=== PATIENT | female | born 2000 | race Caucasian/White ===

== ENCOUNTER 2024-11-05 16:20 | Emergency (ER) | payer OTHER, SELFPAY ==
[2024-11-05 16:23] VITALS: BP 121/87
--- NOTE | 2024-11-05 16:41 | ED.GENMED ---
History of Present Illness
General
Chief Complaint: Flank Pain
Source: patient
Exam Limitations: none
Time Seen by Provider: 11/05/24 16:26
History of Present Illness
History of Present Illness:
24yoF with a history of kidney stones, POTS, MAST cell activation syndrome presenting with her father for evaluation of left flank pain. Patient was seen at an ED in [place] 3 days ago and was diagnosed with a left kidney stone. Her pain resolved
so she assumed that she passed the stone although did not see any stones in the urine strainer. She has been urinating frequently over the past few days. Her current pain started abruptly around noon today. Pain is localized to the left flank and
is nonradiating. She reports associated nausea and vomited once. She denies any fevers. She has never seen a urologist before. She has passed multiple stones within the past year.
Phy Exam
Physical Exam
Physical Exam:
Appears uncomfortable
General Physical Exam
General Presentation: mild distress
General Skin: warm and dry
General Habitus: normal
General Mental: alert
ENT Exam
ENT Exam: normocephalic
Gastrointestinal Exam
Gastrointestinal Exam: non tender, soft, non distended and other (+L CVA tenderness)
Neurological Exam
Neurological Exam: alert
Grace Coma Scale
Eye Opening: Spontaneous
Verbal Response: Oriented
Motor Response: Obeys Commands
GCS Total Score: 15
Skin Exam
Skin Exam: normal color and warm/dry
Psychiatric Exam
Psychiatric Exam: normal mood/affect
Course
Orders/Labs/Results
Orders:
Orders
11/05/24 16:40
CT Abd/pel Without Iv Or Oral Urgent
Comment:
Reason For Exam: L flank pain
0.9% Sodium Chloride 1000 ml [Nss] 1,000 ml IV BOLUS
HYDROmorphone [Dilaudid] 0.5 mg IV NOW STA
Ketorolac [Toradol] 15 mg IV NOW STA
Test Result ONCE
11/05/24 16:53
Complete Blood Count/With Diff Urgent
Comprehensive Metabolic Panel Urgent
HCG, Serum Qualitative Screen Urgent
Urinalysis Reflex To Culture Urgent
Date Specimen was Collected: 11/05/24
Time Specimen was Collected: 16:32
Urine Microscopic Reflex Cult Urgent
11/05/24 17:18
Ondansetron Injectable [Zofran] 4 mg .ROUTE .STK-MED ONE
Ondansetron Injectable [Zofran] 4 mg IV NOW STA
11/05/24 18:34
HYDROmorphone [Dilaudid] 0.5 mg IV NOW STA
Ketorolac [Toradol] 15 mg IV NOW STA
11/05/24 19:23
Acetaminophen 1000MG/100Ml [Ofirmev] 1,000 mg in 100 ml IV ONCE
Acetaminophen IV Indication:: ED Narcotic Naive Pt-ONCE
Ketorolac [Toradol] 15 mg IV NOW STA
Ondansetron Injectable [Zofran] 4 mg IV NOW STA
Tamsulosin [Flomax] 0.4 mg PO NOW STA
Abnormal Lab Results
11/05/24
16:53
RBC 4.11 L 10^6/uL
(4.20-5.40)
Hct 36.3 L %
(37.0-47.0)
MCH 31.6 H pg
(27.0-31.0)
Lymphocytes % 17.5 L %
(20.5-51.1)
Glucose 118 H mg/dl
(70-99)
AST 63 H U/L
(14-36)
ALT 41 H U/L
(0-35)
Urine Ketones 3+ A
(Negative)
Ur Occult Blood Reflex 2+ A
(Negative)
Urine RBC 3-6 A /HPF
(0-2)
Urine Bacteria (Reflex) Few A
(Negative)
Urine Albumin (Reflex) 1+ A
(Neg - Trace)
11/05/24 16:53
11/05/24 16:53
Vital Signs
Initial and Last Documented VS:
Initial Vital Signs
Temp Pulse Resp BP Pulse Ox
98.1 F 93 20 121/87 99
11/05/24 16:23 11/05/24 16:23 11/05/24 16:23 11/05/24 16:23 11/05/24 16:23
Last Documented Vital Signs
Temp Pulse Resp BP Pulse Ox
98.1 F 88 20 128/76 99
11/05/24 16:23 11/05/24 20:17 11/05/24 20:17 11/05/24 20:17 11/05/24 20:17
MDM/Problems Addressed
Differential Diagnosis Includes:
24yoF here with L flank pain that started this afternoon. Associated with n/v. Diagnosed with a kidney stone 3 days ago in [place]. VSS. She appears uncomfortable but is non-toxic. +L CVA tenderness on exam. Differential diagnosis includes but is
not limited to: kidney stone, pyelonephritis, UTI, musculoskeletal
Initial ED plan: Check CBC, CMP, HCG, UA, and CT abdomen without contrast. IV Toradol, Dilaudid, Zofran, and fluid bolus for symptoms.
*Critical Care Note
Total Time (30-74mins, 75-104mins- exclusive of procedures): Not Applicable
Update Note
Update Note:
CT shows a 2mm L UVJ stone. Creatinine 0.7. No signs of infection on urinalysis. Pain down to a 4/10 on reassessment. No indication for hospitalization. Supportive care discussed including hydration, urine straining, and Flomax. Prescription given
for oxycodone and Zofran. Advised close f/u with urology and ED return precautions reviewed. Patient in agreement with plan and was discharged in stable condition.
ED Attending Note
-
Portions of this chart may have been created with voice recognition software.� Occasional wrong word or��sound alike� substitutions may have occurred due to the inherent limitations of voice recognition software.
Discharge Plan
Departure
Patient Disposition: Home (Routine Discharge)
Date of Disposition: 11/05/24
Time of Disposition: 19:46
Patient with high blood pressure during this ER visit?: No
Discharge Problem:
Calculus of distal left ureter
Instructions: Kidney Stones (DC), How to Strain Your Urine
Prescriptions:
New
tamsulosin [Flomax] 0.4 mg capsule
0.4 mg PO HS Qty: 7 0RF
ondansetron 4 mg tablet,disintegrating
4 mg PO Q6H PRN (Reason: nausea and vomiting) Qty: 20 0RF
oxycodone 5 mg tablet
5 mg PO Q6H PRN (Reason: Pain) Qty: 12 0RF
Referrals:
Andrea Augustine MD [Active] -
Cristine Rendon DO [Family Provider] -
Activity Restrictions/Additional Instructions:
Drink plenty of fluids. Strain your urine and take Flomax until stone has passed.
Take Tylenol and ibuprofen for pain. Take oxycodone as needed for severe breakthrough pain. Take Zofran as needed for nausea.
Please follow-up with urology. Return to the ER with any worsening symptoms including uncontrolled pain or fevers.
Interventions
Interventions:
*Risk Screen - Suicide Last Done: 11/05/24 16:56
*General Assessment Last Done: 11/05/24 16:23
*Neglect/Abuse Screening Last Done: 11/05/24 16:56
*ED- Fall Risk Assessment Last Done: 11/05/24 20:17
*ED COVID-19 Vaccine History Last Done: 11/05/24 20:17
*Nursing Disposition Last Done: 11/05/24 20:20
BE-Njxbuz-Mtqvsattvj Assessment Last Done: 11/05/24 16:56
ED-Female Genitourinary Assessment Last Done: 11/05/24 17:13
Discharge Date and Time
Discharge Date/Time: 11/05/24 20:21
Print Language: MACEDONIAN
[2024-11-05] MEDS: DILAUDID 0.5 MG IV ×2 (16:49→18:37)
[2024-11-05] MEDS: TORADOL 15 MG IV ×3 (16:49→19:47)
[2024-11-05] MEDS: NSS 1000 IV (16:50)
[2024-11-05 16:56] VITALS: BMI 19.2
[2024-11-05 17:04] LABS: % Basophils 0.4 % (0-2); % Immature Granulocytes 0.4 % (0-0.5); % Lymphocytes 17.5 % (20.5-51.1); % Monocytes 7.3 % (1.7-9.3); % Neutrophils 73.4 % (42.2-75.2); Absolute Eosinophils 0.1 10^3/uL (0-0.7); Absolute Lymphocytes 1.5 10^3/uL (1.2-3.4); Absolute Monocytes 0.6 10^3/uL (0.1-0.6); Absolute Neutrophils 6.2 10^3/uL (1.4-6.5); Hematocrit 36.3 % (37.0-47.0); Mean Corp Hgb Conc. 35.8 g/dL (33.0-37.0); Mean Corpuscular Hgb 31.6 pg (27.0-31.0); Mean Corpuscular Volume 88.3 fL (81.0-99.0); Mean Platelet Volume 9.1 fL (7.4-10.4); Nucleated Red Blood Cells % 0 %; Platelet Count 275 10^3/uL (130-400); Red Blood Cell Count 4.11 10^6/uL (4.20-5.40); Red Cell Dist. Width 11.5 % (11.5-14.5); White Blood Cell Count 8.4 10^3/uL (4.8-10.8)
[2024-11-05 17:13] LABS: HCG, Serum Qualitative Screen Negative
[2024-11-05 17:17] LABS: ALT (SGPT) 41 U/L (0-35); AST (SGOT) 63 U/L (14-36); Albumin 4.5 g/dl (3.5-5.0); Alkaline Phosphatase 50 U/L (38-126); Blood Urea Nitrogen 11 mg/dl (7-17); Carbon Dioxide 27 mmol/L (22-30); Chloride 105 mmol/L (98-107); Estimated Creatinine Clearance 93 ml/min; Glucose 118 mg/dl (70-99); Potassium 4.1 mmol/L (3.5-5.1); Sodium 139 mmol/L (135-145); Total Bilirubin 0.9 mg/dl (0.2-1.3); Total Protein 7.4 g/dl (6.3-8.2); eGFR > 60.00
[2024-11-05] MEDS: ZOFRAN 4 MG IV ×2 (17:19→19:48)
[2024-11-05 18:04] LABS: Urine Albumin 1+ (Neg - Trace); Urine Bilirubin Negative (Negative); Urine Character Clear (Clear); Urine Color Yellow; Urine Glucose Negative (Negative); Urine Ketone 3+ (Negative); Urine Leukocyte Negative (Negative); Urine Nitrite Negative (Negative); Urine Occult Blood 2+ (Negative); Urine Urobilinogen Negative (Neg - 1+)
[2024-11-05 18:41] VITALS: BP 134/87
[2024-11-05 18:46] LABS: Urine Bacteria Few (Negative)
[2024-11-05] MEDS: FLOMAX 0.4 MG PO (19:47)
[2024-11-05] MEDS: OFIRMEV 100 IV (19:48)
[2024-11-05 20:17] VITALS: BP 128/76
== END 2024-11-05 20:21 | disposition home or self-care (01) ==
LOC: EMR 16:20
PROVIDERS: Physician Assistant; EMERGENCY PHYSICIAN Emergency Medicine; FAMILY PHYSICIAN Family Medicine Adolescent Medicine
DX: N20.1 Calculus of ureter (principal); Z87.442 Personal history of urinary calculi
CPT/HCPCS: 99285; 96374; 96375 ×3; 96376 ×3; 74176; 80053; 81003; 81015; 84703; 85025